=== PATIENT | male | born 1935 | race Caucasian/White ===

== ENCOUNTER 2018-12-03 13:30 | Observation (INO) | payer MEDICARE, BC ==
[2018-12-03] MEDS ORDERED: Sodium Chloride 0.9% 250 ML IV SCH ×3 (14:00→20:15)
--- NOTE | 2018-12-03 14:03 | EDM.PDOC ---
ED HPI GENERAL MEDICAL PROBLEM - General Chief Complaint: Cardiovascular Problem Stated Complaint: LOW BP DIZZY Time Seen by Provider: 12/03/18 13:30 Source of Information: Reports: Patient, Family History Limitations: Reports: Other (poor historian) - History of Present Illness INITIAL COMMENTS - FREE TEXT/NARRATIVE: 83 y.o.w.m with ESRD, on HD 2x per week, came with his to the ed because of palpitations. Pt has a h/o A fib, for which he was seen at [place] and was admitted for 1 week. Pt was in NSR as he left the hospital about a week ago. Pt denies CP or SOB. His last HD was 12/02/2018. No N/V/D. No Dizziness, no Diaphoresis or any other acute medical issues. BP 95/85 RR 20 Pulse ox on RA 97 % Pulse 121-137 (irr/irr)Temp 36.8 Onset Date: 12/03/18 Onset Time: 06:00 Duration: Hour(s): Location: Reports: Generalized Quality: Reports: Dull Severity: Moderate Improves with: Reports: Medication Worsens with: Reports: Movement Context: Reports: Other (ESRD) Associated Symptoms: Reports: No Other Symptoms - Related Data Allergies Allergy/AdvReac Type Severity Reaction Status Date / Time hydroxychloroquine Allergy Swelling Verified 12/03/18 13:55 [From Plaquenil] NSAIDS (Non-Steroidal Allergy Other Verified 12/03/18 13:55 Anti-Inflamma Kcbbgfi-Pnx-Vab Reductase Allergy Swelling Verified 12/03/18 13:55 Inhibitor Home Meds: Home Meds Bisacodyl [Dulcolax] 10 mg PO DAILY PRN 11/30/18 [History] Bumetanide 2 mg PO BID 11/30/18 [History] Calcitriol 0.25 mcg PO MO 11/30/18 [History] Cholecalciferol (Vitamin D3) [Vitamin D3] 1,000 units PO DAILY 11/30/18 [History ] Clopidogrel [Plavix] 75 mg PO DAILY 11/30/18 [History] Finasteride 5 mg PO DAILY 11/30/18 [History] Gluc Lowry 2KCl/Chondr/Vit C/Dave [Glucosamine-Chondr Complex] 1 each PO BID [History] Isosorbide Mononitrate [Imdur] 90 mg PO DAILY 11/30/18 [History] Lactulose 10 gm PO BEDTIME PRN 11/30/18 [History] Levothyroxine 175 mcg PO ACBRK 11/30/18 [History] Lisinopril 5 mg PO DAILY 11/30/18 [History] Lutein/Minerals/Vit A,C & E [Ocuvite] 1 each PO BID 11/30/18 [History] Metoprolol Succinate [Toprol Xl] 100 mg PO DAILY 11/30/18 [History] Niacin 500 mg PO DAILY 11/30/18 [History] Nitroglycerin [Nitrostat] 0.4 mg SL ASDIRECTED PRN 11/30/18 [History] Omeprazole 20 mg PO DAILY 11/30/18 [History] Polyethylene Glycol 3350 [MiraLAX] 17 gm PO DAILY 11/30/18 [History] Ranolazine [Ranexa] 500 mg PO DAILY 11/30/18 [History] Rosuvastatin [Crestor] 20 mg PO DAILY 11/30/18 [History] Sennosides/Docusate Sodium [Senokot-S Tablet] 1 each PO DAILY 11/30/18 [History] Tamsulosin HCl [Flomax] 0.8 mg PO DAILY 11/30/18 [History] Warfarin [Coumadin] 5 mg PO SUTUWETHSA 11/30/18 [History] Sennosides/Docusate Sodium [Senna-Docusate Sodium Tablet] 2 tab BEDTIME [History] Warfarin [Coumadin] 2.5 mg PO MOFR 12/03/18 [History] Past Medical History HEENT History: Reports: Cataract, Hard of Hearing, Impaired Vision Cardiovascular History: Reports: High Cholesterol, Hypertension, PR, SOB on Exertion, Stents, Other (See Below) Other Cardiovascular History: Pt states having mechanical heart valve Respiratory History: Reports: SOB Gastrointestinal History: Reports: Other (See Below) Other Gastrointestinal History: Left inguinal hernia Genitourinary History: Reports: Dialysis, Other (See Below) Other Genitourinary History: Dialysis catheterization in past; currently receiving hemodialysis, has fistula in right arm Musculoskeletal History: Reports: Back Pain, Chronic Endocrine/Metabolic History: Reports: Hypothyroidism, Obesity/BMI 30+, Vitamin D Deficiency Hematologic History: Reports: Anemia, Blood Transfusion(s) - Infectious Disease History Infectious Disease History: Reports: Chicken Pox, Measles, Mumps - Past Surgical History HEENT Surgical History: Reports: Eye Surgery Other HEENT Surgeries/Procedures: bilateral cataracts Cardiovascular Surgical History: Reports: Other (See Below) Other Cardiovascular Surgeries/Procedures: Stents placed; mechanical heart valve Respiratory Surgical History: Reports: None GI Surgical History: Reports: Colonoscopy, EGD, Hernia, Inguinal Other GI Surgeries/Procedures: Left inguinal hernia Male Surgical History: Reports: Other (See Below) Other Male Surgeries/Procedures: Receives dialysis on Tuesdays and Saturdays. Endocrine Surgical History: Reports: None Musculoskeletal Surgical History: Reports: Knee Replacement Other Musculoskeletal Surgeries/Procedures:: bilateral, 2013 Dermatological Surgical History: Reports: None Social & Family History - Family History Family Medical History: Noncontributory - Caffeine Use Caffeine Use: Reports: Coffee ED ROS GENERAL - Review of Systems Review Of Systems: See Below Constitutional: Reports: No Symptoms HEENT: Reports: No Symptoms Respiratory: Reports: No Symptoms Cardiovascular: Reports: Palpitations Endocrine: Reports: No Symptoms GI/Abdominal: Reports: No Symptoms : Reports: No Symptoms Musculoskeletal: Reports: No Symptoms Skin: Reports: No Symptoms Neurological: Reports: No Symptoms Psychiatric: Reports: No Symptoms Hematologic/Lymphatic: Reports: No Symptoms Immunologic: Reports: No Symptoms ED EXAM, GENERAL - Physical Exam Exam: See Below Exam Limited By: No Limitations General Appearance: Alert, WD/WN, No Apparent Distress Eye Exam: Bilateral Eye: Normal Inspection Ears: Normal External Exam Ear Exam: Bilateral Ear: Auricle Normal Nose: Normal Inspection, Normal Mucosa, No Blood Throat/Mouth: Normal Inspection, Normal Lips, Normal Voice, No Airway Compromise , Other (dry mucosal membrane) Head: Atraumatic, Normocephalic Neck: Normal Inspection, Supple, Non-Tender, Full Range of Motion Respiratory/Chest: No Respiratory Distress, Lungs Clear, Normal Breath Sounds, No Accessory Muscle Use Cardiovascular: Tachycardia, Irregularly Irregular GI/Abdominal: Normal Bowel Sounds, Soft, Non-Tender, No Organomegaly, No Distention, No Abnormal Bruit (Male) Exam: Deferred Rectal (Males) Exam: Deferred Back Exam: Normal Inspection, Full Range of Motion Extremities: Normal Inspection, Normal Range of Motion Neurological: Alert, Oriented, CN II-XII Intact, Normal Cognition Psychiatric: Normal Affect, Normal Mood Skin Exam: Warm, Dry, Intact Lymphatic: No Adenopathy EKG INTERPRETATION EKG Date: 12/03/18 Time: 13:45 Rhythm: A-Fib Rate (Beats/Min): 126 [place]: Normal P-Wave: Absent QRS: Normal ST-T: Normal QT: Prolonged Comparison: NA - No Prior EKG (2nd ECG: Please see note on ED Course) Course - Vital Signs Text/Narrative:: 83 y.o.w.m with ESRD, on HD 2x per week, came with his to the ed because of palpitations. Pt has a h/o A fib, for which he was seen at [place] and was admitted for 1 week. Pt was in NSR as he left the hospital about a week ago. Pt denies CP or SOB. His last HD was 12/02/2018. No N/V/D. No Dizziness, no Diaphoresis or any other acute medical issues. BP 95/85 RR 20 Pulse ox on RA 97 % Pulse 121-137 (irr/irr)Temp 36.8 PE: 83 y.o.w.m with a H/O ESRD, came to the ED due to palpitation last HD was on 10/06/2018 Labs: WBC 13.7 HGB 9.8 Na 133 K 3.7 BUN 31 Cr 5.1 GFR 11 Troponin 0.112 Lactic acid 1.4 Impression: ESRD, Palpitations with Elevated Troponin, Hypotension NS: NS bolus, Metoprolol, 20 mg Diltiazem i.v. Reexam: Improved of BP temporarily, A Fib with RVR did not convert 3.52 pm Consultation: Dr. Crump, Hospitalist: Did not call [facility] hospital 6.10 pm consultation: Dr. Crump, Hospitalist: Consult [facility], will accept the admission as per [place]'s recommendation 6.17 pm Consultation: Dr. Lewis, [employer], [facility]: Pt davey not qualify for an angiogram, recommended, to admit pt and start B merissa/ Cardiazem drip Plan: Admit to ICU, Family and Pt agreed. Addendum: Because the BP was borderline low, Diltiazem was given PO was given po. Pt converted to NSR a few hours later. 12/03/2018 22:56 ECG: NSR with a rate of 91 BPM, NAD, QTc [address]/T wave changes Last Recorded V/S: Last Vital Signs Temp 36.6 C 12/04/18 04:00 Pulse 89 12/04/18 04:00 Resp 17 12/04/18 04:00 BP 130/68 12/04/18 04:00 Pulse Ox 93 L 12/04/18 04:00 Orthostatic Blood Pressure [ 80/49 Standing] Orthostatic Blood Pressure [ 91/47 Sitting] Orthostatic Blood Pressure [ 104/63 Supine] - Orders/Labs/Meds Orders: Active Orders 24 hr Category Date Time Status EKG Documentation Completion [RC] ASDIRECTED Care 12/03/18 13:59 Active EKG Documentation Completion [RC] ASDIRECTED Care 12/03/18 17:14 Active UA W/MICROSCOPIC [URIN] Stat Lab 12/03/18 13:57 Ordered Diltiazem [Cardizem] 100 mg Med 12/03/18 19:15 Active Sodium Chloride 0.9% [Normal Saline] 100 ml IV TITRATE Sodium Chloride 0.9% [Normal Saline] 250 ml Med 12/03/18 15:00 Active IV ASDIRECTED Sodium Chloride 0.9% [Saline Flush] Med 12/03/18 19:13 Active 10 ml FLUSH ASDIRECTED PRN Peripheral IV Insertion Adult [OM.PC] Routine Oth 12/03/18 19:13 Ordered EKG 12 Lead [EK] Routine Ther 12/03/18 13:57 Ordered EKG 12 Lead [EK] Routine Ther 12/03/18 17:14 Ordered Medication Orders Enoxaparin Sodium (Lovenox) 90 mg SUBCUT Q12H DEIDRA Last Admin: 12/03/18 20:50 Dose: 90 mg Diltiazem HCl 100 mg/ Sodium (Chloride) 100 mls @ 5 mls/hr IV TITRATE DEIDRA; Protocol Sodium Chloride (Normal Saline) 250 mls @ 999 mls/hr IV ASDIRECTED DEIDRA Last Admin: 12/03/18 15:00 Dose: 999 mls/hr Sodium Chloride (Normal Saline) 250 mls @ 999 mls/hr IV ASDIRECTED DEIDRA Last Admin: 12/03/18 20:58 Dose: 999 mls/hr Sodium Chloride (Saline Flush) 10 ml FLUSH ASDIRECTED PRN PRN Reason: Keep Vein Open Last Admin: 12/03/18 21:17 Dose: 10 ml Labs: Laboratory Tests 12/03/18 12/03/18 12/03/18 Range/Units 13:45 13:45 13:45 WBC 13.7 H (4.5-12.0) X10-3/uL RBC 3.37 L (4.30-5.75) x10(6)uL Hgb 9.8 L (13.5-17.8) g/dL Hct 29.6 L (30.0-51.3) % MCV 87.9 (80-96) fL MCH 28.9 (27.7-33.6) pg MCHC 32.9 (32.2-35.4) g/dL RDW 16.9 H (11.5-15.5) % Plt Count 276 (125-369) X10(3)uL MPV 7.4 (7.4-10.4) fL Add Manual Diff Yes Neutrophils % (Manual) 96 H (46-82) % Lymphocytes % (Manual) 1 L (13-37) % Monocytes % (Manual) 3 L (4-12) % Anisocytosis Few Sodium 133 L (135-145) mmol/L Potassium 3.7 (3.5-5.3) mmol/L Chloride 95 L (100-110) mmol/L Carbon Dioxide 28 (21-32) mmol/L BUN 34 H (7-18) mg/dL Creatinine 5.1 H* (0.70-1.30) mg/dL Est Cr Clr Drug Dosing 11.69 mL/min Estimated GFR (MDRD) 11 L (>60) BUN/Creatinine Ratio 6.7 L (9-20) Glucose 146 H (80-116) mg/dL Lactic Acid (0.4-2.2) mmol/L Calcium 9.1 (8.6-10.2) mg/dL Magnesium 2.1 (1.8-2.5) mg/dL Troponin I 0.112 H* (<0.017-0.056) ng/mL 12/03/18 12/03/18 Range/Units 13:45 17:50 WBC (4.5-12.0) X10-3/uL RBC (4.30-5.75) x10(6)uL Hgb (13.5-17.8) g/dL Hct (30.0-51.3) % MCV (80-96) fL MCH (27.7-33.6) pg MCHC (32.2-35.4) g/dL RDW (11.5-15.5) % Plt Count (125-369) X10(3)uL MPV (7.4-10.4) fL Add Manual Diff Neutrophils % (Manual) (46-82) % Lymphocytes % (Manual) (13-37) % Monocytes % (Manual) (4-12) % Anisocytosis Sodium (135-145) mmol/L Potassium (3.5-5.3) mmol/L Chloride (100-110) mmol/L Carbon Dioxide (21-32) mmol/L BUN (7-18) mg/dL Creatinine (0.70-1.30) mg/dL Est Cr Clr Drug Dosing mL/min Estimated GFR (MDRD) (>60) BUN/Creatinine Ratio (9-20) Glucose (80-116) mg/dL Lactic Acid 1.4 (0.4-2.2) mmol/L Calcium (8.6-10.2) mg/dL Magnesium (1.8-2.5) mg/dL Troponin I 0.136 H* (<0.017-0.056) ng/mL Meds: Medications Generic Name Dose Route Start Last Admin Trade Name Freq PRN Reason Stop Dose Admin Enoxaparin Sodium 90 mg 12/03/18 19:45 12/03/18 20:50 Lovenox SUBCUT 90 mg Q12H DEIDRA Administration Diltiazem HCl 100 mg/ Sodium 100 mls @ 5 mls/hr 12/03/18 19:15 Chloride IV TITRATE DEIDRA Protocol 5 MG/HR Sodium Chloride 250 mls @ 999 mls/hr 12/03/18 15:00 12/03/18 15:00 Normal Saline IV 999 mls/hr ASDIRECTED DEIDRA Administration Sodium Chloride 250 mls @ 999 mls/hr 12/03/18 20:15 12/03/18 20:58 Normal Saline IV 999 mls/hr ASDIRECTED DEIDRA Administration Sodium Chloride 10 ml 12/03/18 19:13 12/03/18 21:17 Saline Flush FLUSH 10 ml ASDIRECTED PRN Administration Keep Vein Open Discontinued Medications Generic Name Dose Route Start Last Admin Trade Name Freq PRN Reason Stop Dose Admin Albuterol 2.5 mg 12/04/18 06:26 Proventil Neb Soln NEB Q2H PRN Hyperkalemia Calcium Chloride 1 gm 12/04/18 06:26 Calcium Chloride 10% IV 12/04/18 06:27 ONETIME ONE Diltiazem HCl 10 mg 12/03/18 15:32 12/03/18 15:56 Diltiazem IVPUSH 12/03/18 15:33 10 mg ONETIME ONE Administration Diltiazem HCl 120 mg 12/03/18 20:13 12/03/18 20:51 Cardizem Cd PO 12/03/18 20:14 120 mg ONETIME ONE Administration Sodium Chloride 250 mls @ 999 mls/hr 12/03/18 14:00 Normal Saline IV ASDIRECTED DEIDRA Metoprolol Tartrate 2.5 mg 12/03/18 19:00 12/03/18 19:09 Lopressor IVPUSH 12/03/18 19:01 2.5 mg ONETIME ONE Administration Departure - Departure Time of Disposition: 19:00 Disposition: Refer to Observation Condition: Fair Clinical Impression: Atrial fibrillation with RVR - My Orders Last 24 Hours: My Active Orders 12/03/18 13:57 UA W/MICROSCOPIC [URIN] Stat EKG 12 Lead [EK] Routine 12/03/18 13:59 EKG Documentation Completion [RC] ASDIRECTED 12/03/18 15:00 Sodium Chloride 0.9% [Normal Saline] 250 ml IV ASDIRECTED 12/03/18 17:14 EKG Documentation Completion [RC] ASDIRECTED EKG 12 Lead [EK] Routine 12/03/18 19:13 Sodium Chloride 0.9% [Saline Flush] 10 ml FLUSH ASDIRECTED PRN Peripheral IV Insertion Adult [OM.PC] Routine 12/03/18 19:15 Diltiazem [Cardizem] 100 mg Sodium Chloride 0.9% [Normal Saline] 100 ml IV TITRATE - Assessment/Plan Last 24 Hours: My Active Orders 12/03/18 13:57 UA W/MICROSCOPIC [URIN] Stat EKG 12 Lead [EK] Routine 12/03/18 13:59 EKG Documentation Completion [RC] ASDIRECTED 12/03/18 15:00 Sodium Chloride 0.9% [Normal Saline] 250 ml IV ASDIRECTED 12/03/18 17:14 EKG Documentation Completion [RC] ASDIRECTED EKG 12 Lead [EK] Routine 12/03/18 19:13 Sodium Chloride 0.9% [Saline Flush] 10 ml FLUSH ASDIRECTED PRN Peripheral IV Insertion Adult [OM.PC] Routine 12/03/18 19:15 Diltiazem [Cardizem] 100 mg Sodium Chloride 0.9% [Normal Saline] 100 ml IV TITRATE
[2018-12-03] MEDS ORDERED: Diltiazem 25 MG/5 ML SDV IVPUSH ONE (15:32)
[2018-12-03] MEDS ORDERED: Metoprolol Tartrate 5 MG/5 ML SDV IVPUSH ONE (19:00)
[2018-12-03] MEDS ORDERED: Sodium Chloride 0.9% 10 ML Syringe FLUSH PRN (19:13)
[2018-12-03] MEDS ORDERED: Diltiazem 100 MG in Sodium Chloride 0.9% 100 ML IV SCH (19:15)
[2018-12-03] MEDS ORDERED: Diltiazem 120 MG Cap.CD PO ONE (20:13)
[2018-12-03] MEDS: Enoxaparin 100 MG/1 ML Syringe SUBCUT SCH (20:50)
[2018-12-04] MEDS ORDERED: Calcium Chloride 10% 1 GM/10 ML Syringe IV ONE (06:26)
[2018-12-04] MEDS ORDERED: Albuterol 0.083% 2.5 MG/3 ML Neb Soln NEB PRN (06:26)
[2018-12-04] MEDS ORDERED: Nitroglycerin 0.4 MG Tab.SL SL PRN (10:04)
[2018-12-04] MEDS: Enoxaparin 100 MG/1 ML Syringe SUBCUT SCH (10:11)
--- NOTE | 2018-12-04 11:12 | HP ---
ADMISSION DATE: 12/03/2018 Left upper arm dialysis AV shunt in place. /[id number] SHERRI/SAUNDRA
[2018-12-04] MEDS: Diltiazem 240 MG Cap.ER PO SCH (11:15)
[2018-12-04] MEDS: RANOLAZINE 500 MG PO SCH (11:17)
[2018-12-04] MEDS: METOPROLOL SUCCINATE 100 MG PO SCH (11:17)
[2018-12-04] MEDS: FINASTERIDE 5 MG PO SCH (11:18)
[2018-12-04] MEDS: Tamsulosin 0.4 MG Cap.ER*PTOM PO SCH (11:19)
[2018-12-04] MEDS: ISOSORBIDE MONONITRATE 60 MG PO SCH (11:20)
[2018-12-04] MEDS: CLOPIDOGREL 75 MG PO SCH (11:21)
--- NOTE | 2018-12-04 12:18 | HP ---
ADMISSION DATE: 12/03/2018 REASON FOR VISIT: Dizzy spells, rapid atrial fibrillation and heart rate. HISTORY OF PRESENT ILLNESS: Greg Valiente is an 83-year-old male, admitted through [facility] ER. He had a recent acute care stay in [place], rapid atrial fib resolution, medications on board with Coumadin. Doing well. He was seen last week and things were stable. Last 24 hours, noted some weakness, dizziness, lightheadedness. No diaphoresis, but feeling poorly. When he came in, blood pressure is mildly low. O2 sats are good. Pulse was 120 to 130, irregularly regular. Admitted for intervention. LABORATORY STUDIES: Done in the ER, white count 13,700, hemoglobin 9.8, hematocrit 29.6. Sodium 133, creatinine 5.1. Dialysis on board. Troponin 0.112, 0.136, and 0.200. Dialysis Tuesdays and in [place]. ADMISSION MEDICATIONS: Please see medication reconciliation list. ALLERGIES: Allergic to Plaquenil, NSAIDs, and statins. No other medication, environmental, or latex allergies. PAST MEDICAL HISTORY: Significant for previous heart valve surgery, stent surgery, dialysis with access to left arm, knee arthroplasties, and hernia repair. Chronic illnesses include coronary artery disease, hypertension, chronic renal disease, hyperlipidemia. SOCIAL HISTORY: Retired. Lives in [place]. in good health. Four kids, 6 grand kids. Nonsmoker. No alcohol consumption. REVIEW OF SYSTEMS: Please see HPI. EYES: Sees reasonably well. Previous cataract surgery. EARS: Difficulty in crowds. OROPHARYNX: Intact dentition. GI: Bowels have been fine. : Voiding without difficulty. CHEST: No cough, wheeze, or respiratory. CV: Please see HPI. EXTREMITIES: Intermittent edema. ORTHOPEDIC: Generalized joint complaints. PHYSICAL EXAMINATION: VITAL SIGNS: 36.7, pulse is 88 to 95 and irregular, blood pressure 130/68, respirations 17, 95% on room air. GENERAL: Cooperative, conversant, markedly hard of hearing. HEENT: Reveal funduscopic benign. Bright TMs. Clear nasal discharge. Mouth and oropharynx clear. Tongue midline. Good gag reflex. NECK: Benign. Thyroid small. No adenopathy. No carotid bruits. CHEST: Clear in all lung gonzalez. HEART: Irregularly regular at 90. ABDOMEN: Benign. Surgical scar well healed. Sternotomy scar well healed. No hepatosplenomegaly. : Normal male genitalia. Atrophic testicles. RECTAL: Exam deferred. EXTREMITIES: Reveal mild venous stasis changes. Left upper arm dialysis AV shunt in place. ASSESSMENT: Tachyarrhythmia secondary to intermittent atrial fibrillation. PLAN: Rate control appropriate. Not a candidate for cardioversion. Coumadin on board. /[id number] SHERRI/SAUNDRA GOTTLIEB
[2018-12-04] MEDS: BUMETANIDE 2 MG PO SCH (14:06)
[2018-12-04] MEDS: LEVOTHYROXINE 175 MCG PO SCH (14:06)
[2018-12-04] MEDS ORDERED: Non-Formulary Medication 1 Each (Omeprazole [Omeprazole] 20 MG) PO SCH (16:00)
[2018-12-04] MEDS ORDERED: WARFARIN 5 MG PO SCH (16:00)
[2018-12-04] MEDS: Acetaminophen/Codeine 300-30 MG Tab PO PRN (18:51)
[2018-12-05] MEDS: Acetaminophen/Codeine 300-30 MG Tab PO PRN (00:18)
[2018-12-05] MEDS ORDERED: Magnesium Hydroxide 400 MG/5 ML Susp 30 ML Cup PO PRN (00:25)
[2018-12-05] MEDS: LEVOTHYROXINE 175 MCG PO SCH (05:30)
[2018-12-05] MEDS: BUMETANIDE 2 MG PO SCH (08:10)
[2018-12-05] MEDS: Diltiazem 240 MG Cap.ER PO SCH (08:11)
[2018-12-05] MEDS: Tamsulosin 0.4 MG Cap.ER*PTOM PO SCH (08:11)
[2018-12-05] MEDS: CLOPIDOGREL 75 MG PO SCH (08:12)
[2018-12-05] MEDS: ISOSORBIDE MONONITRATE 60 MG PO SCH (08:12)
[2018-12-05] MEDS: METOPROLOL SUCCINATE 100 MG PO SCH (08:13)
[2018-12-05] MEDS: RANOLAZINE 500 MG PO SCH (08:13)
[2018-12-05] MEDS: FINASTERIDE 5 MG PO SCH (08:13)
[2018-12-05] MEDS ORDERED: LACTULOSE 10 GM/15 ML PO SCH (09:00)
--- NOTE | 2018-12-05 09:03 | PCM.PN ---
- General Info Date of Service: 12/05/18 Subjective Update: Complains of back pain,chronic,Moderate to severe. Functional Status: Reports: Pain Controlled, Tolerating Diet - Review of Systems Pulmonary: Reports: No Symptoms Cardiovascular: Reports: No Symptoms Gastrointestinal: Reports: No Symptoms - Patient Data Vitals - Most Recent: Last Vital Signs Temp 97.7 F 12/05/18 05:35 Pulse 73 12/05/18 08:13 Resp 18 12/05/18 05:35 BP 117/60 12/05/18 08:13 Pulse Ox 93 L 12/05/18 05:35 Orthostatic Blood Pressure [ 80/49 Standing] Orthostatic Blood Pressure [ 91/47 Sitting] Orthostatic Blood Pressure [ 104/63 Supine] Weight - Most Recent: 104.644 kg I&O - Last 24 Hours: Intake & Output 12/04/18 12/05/18 12/05/18 22:59 06:59 14:59 Intake Total 200 100 Output Total 0 0 100 Balance 200 100 -100 Lab Results Last 24 Hours: Laboratory Results - last 24 hr 12/04/18 12/05/18 Range/Units 14:00 06:15 PT 22.1 H (8.7-11.1) INR 2.30 H (0.89-1.13) Urine Color Yellow (YELLOW) Urine Appearance Clear (CLEAR) Urine pH 8.0 H (5.0-6.5) Ur Specific [place] 1.015 (1.010-1.025) Urine Protein 30 H (NEGATIVE) mg/dL Urine Glucose (UA) Normal (NORMAL) mg/dL Urine Ketones Negative (NEGATIVE) mg/dL Urine Occult Blood Negative (NEGATIVE) Urine Nitrite Negative (NEGATIVE) Urine Bilirubin Negative (NEGATIVE) Urine Urobilinogen Normal (NEGATIVE) mg/dL Ur Leukocyte Esterase Negative (NEGATIVE) Urine RBC 0-5 (0-5) Urine WBC 0-5 (0-5) Ur Squamous Epith Cells Occasional (NS,R,O) Ur Renal Epithelial Cell Few H (NS) Urine Bacteria Occasional H (NS) Fine Granular Casts Occasional H (NS) Coarse Granular Casts Few H (NS) Med Orders - Current: Current Medications Acetaminophen/Codeine Phosphate (Tylenol With Codeine No.3 300mg/30mg) 1 tab PO Q4H PRN PRN Reason: neck pain Last Admin: 12/05/18 00:18 Dose: 1 tab Bumetanide (Bumex) 2 mg PO 08,13 [facility] Last Admin: 12/05/18 08:10 Dose: 2 mg Calcitriol (Rocaltrol) 0.25 mcg PO MO [facility] Clopidogrel Bisulfate (Plavix) 75 mg PO DAILY [facility] Last Admin: 12/05/18 08:12 Dose: 75 mg Diltiazem HCl (Dilacor Xr) 240 mg PO DAILY [facility] Last Admin: 12/05/18 08:11 Dose: 240 mg Finasteride (Proscar) 5 mg PO DAILY [facility] Last Admin: 12/05/18 08:13 Dose: 5 mg Sodium Chloride (Normal Saline) 250 mls @ 999 mls/hr IV ASDIRECTED [facility] Last Admin: 12/03/18 15:00 Dose: 999 mls/hr Sodium Chloride (Normal Saline) 250 mls @ 999 mls/hr IV ASDIRECTED [facility] Last Admin: 12/03/18 20:58 Dose: 999 mls/hr Isosorbide Mononitrate (Imdur) 90 mg PO DAILY [facility] Last Admin: 12/05/18 08:12 Dose: 90 mg Lactulose (Chronulac) 10 gm PO DAILY [facility] Last Admin: 12/05/18 08:10 Dose: 10 gm Levothyroxine Sodium (Levothyroxine) 175 mcg PO 0600 [facility] Last Admin: 12/05/18 05:30 Dose: 175 mcg Magnesium Hydroxide (Milk Of Magnesia) 30 ml PO DAILY PRN PRN Reason: Constipation Last Admin: 12/05/18 00:34 Dose: 30 ml Metoprolol Succinate (Toprol Xl) 100 mg PO DAILY [facility] Last Admin: 12/05/18 08:13 Dose: 100 mg Nitroglycerin (Nitrostat) 0.4 mg SL ASDIRECTED PRN PRN Reason: Chest Pain Non-Formulary Medication (Omeprazole [Omeprazole]) 20 mg PO 1600 [facility] Last Admin: 12/04/18 16:02 Dose: 20 mg Non-Formulary Medication (Ranolazine [Ranexa]) 500 mg PO DAILY [facility] Last Admin: 12/05/18 08:13 Dose: 500 mg Sodium Chloride (Saline Flush) 10 ml FLUSH ASDIRECTED PRN PRN Reason: Keep Vein Open Last Admin: 12/03/18 21:17 Dose: 10 ml Tamsulosin HCl (Flomax) 0.8 mg PO DAILY [facility] Last Admin: 12/05/18 08:11 Dose: 0.8 mg Warfarin Sodium (Coumadin) 2.5 mg PO MOFR [facility] Warfarin Sodium (Coumadin) 5 mg PO SUTUWETHSA [facility] Last Admin: 12/04/18 16:02 Dose: 5 mg Discontinued Medications Albuterol (Proventil Neb Soln) 2.5 mg NEB Q2H PRN PRN Reason: Hyperkalemia Calcium Chloride (Calcium Chloride 10%) 1 gm IV ONETIME ONE Stop: 12/04/18 06:27 Last Admin: 12/04/18 07:37 Dose: Not Given Diltiazem HCl (Diltiazem) 10 mg IVPUSH ONETIME ONE Stop: 12/03/18 15:33 Last Admin: 12/03/18 15:56 Dose: 10 mg Diltiazem HCl (Cardizem Cd) 120 mg PO ONETIME ONE Stop: 12/03/18 20:14 Last Admin: 12/03/18 20:51 Dose: 120 mg Enoxaparin Sodium (Lovenox) 90 mg SUBCUT Q12H [facility] Last Admin: 12/04/18 10:11 Dose: Not Given Sodium Chloride (Normal Saline) 250 mls @ 999 mls/hr IV ASDIRECTED [facility] Diltiazem HCl 100 mg/ Sodium (Chloride) 100 mls @ 5 mls/hr IV TITRATE [facility]; Protocol Metoprolol Tartrate (Lopressor) 2.5 mg IVPUSH ONETIME ONE Stop: 12/03/18 19:01 Last Admin: 12/03/18 19:09 Dose: 2.5 mg - Exam General: Alert, Oriented HEENT: Pupils Equal Neck: Supple Lungs: Clear to Auscultation Cardiovascular: Irregular Rhythm, Murmurs Back Exam: Normal Inspection, Vertebral Tenderness Extremities: Normal Inspection. No: Pedal Edema - Problem List & Annotations (1) Atrial fibrillation with RVR SNOMED Code(s): 325319215895319 Code(s): I48.91 - UNSPECIFIED ATRIAL FIBRILLATION Status: Acute Current Visit: Yes (2) ESRD (end stage renal disease) Status: Acute Current Visit: Yes (3) Anemia, chronic disease SNOMED Code(s): 376548058 Code(s): D63.8 - ANEMIA IN OTHER CHRONIC DISEASES CLASSIFIED ELSEWHERE Status: Acute Current Visit: Yes (4) Lower back pain SNOMED Code(s): 833616984 Code(s): M54.5 - LOW BACK PAIN Status: Acute Current Visit: Yes (5) Dizziness SNOMED Code(s): 234428210, 535336003 Code(s): R42 - DIZZINESS AND GIDDINESS Status: Acute Current Visit: Yes - Problem List Review Problem List Initiated/Reviewed/Updated: Yes - Plan Plan:: His heart rate has normalized,BP stable. DC home today.
[2018-12-05] MEDS ORDERED: WARFARIN 5 MG PO SCH (16:00)
[2018-12-08] MEDS ORDERED: CALCITRIOL 0.25 MCG PO SCH (08:00)
== END 2018-12-05 13:30 | disposition home or self-care (01) ==
LOC: FB.ED 13:30 → FB.ICU 19:36
PROVIDERS: ADMIT Emergency Medicine; ATTEND Family Medicine
DX: I48.0 Paroxysmal atrial fibrillation (principal); I12.0 Hypertensive chronic kidney disease with stage 5 chronic kidney disease or end stage renal disease; N18.6 End stage renal disease; D63.1 Anemia in chronic kidney disease; E66.9 Obesity, unspecified; E03.9 Hypothyroidism, unspecified; E78.5 Hyperlipidemia, unspecified; Z79.01 Long term (current) use of anticoagulants; Z91.040 Latex allergy status; Z79.899 Other long term (current) drug therapy; Z79.890 Hormone replacement therapy; Z88.6 Allergy status to analgesic agent; Z88.8 Allergy status to other drugs, medicaments and biological substances
CPT/HCPCS: 36415; 80048; 81001; 83605; 83735; 84484; 85025; 85610; 93005; 96372; 96374; 96375; 99285; A9270; G0378; J1650; J3490; J7030; J7050